=== PATIENT | male | born 1975 | race Caucasian/White ===

== ENCOUNTER → 2018-01-08 | Emergency (ER) | payer OTHER ==
[~2018-01-08] VITALS: Ht 180.3 cm; Wt 81.6 kg
[~2018-01-08] MED LIST: PEPCID40 MG PO; PHENERGAN25 MG PO; RELAGESIC 5001 EACH PO
== END | disposition home or self-care (01) ==
LOC: ER 20:13
DX: R06.6 Hiccough (principal); K20.8 Other esophagitis

== ENCOUNTER 2021-06-08 00:12 | Emergency (ER) | payer OTHER ==
[~2021-06-08] VITALS: Ht 180.3 cm; Wt 81.6 kg
[2021-06-08] MEDS ORDERED: INTESTINEX680 M1 PO (03:26)
[2021-06-08] MEDS ORDERED: CLEOCIN HCL300 MG PO (03:26)
[2021-06-08] MEDS ORDERED: ACETAMINOPHEN650 M2 PO (03:26)
== END 2021-06-08 05:06 | disposition home or self-care (01) ==
LOC: ER 00:12
DX: H92.02 Otalgia, left ear (principal); H60.12 Cellulitis of left external ear

== ENCOUNTER 2021-06-16 23:49 | Emergency (ER) | payer OTHER ==
[~2021-06-16] VITALS: Ht 180.3 cm; Wt 81.6 kg
[~2021-06-16 23:49] MED LIST changes: +ACETAMINOPHEN650 M2 PO; +CLEOCIN HCL300 MG PO; +INTESTINEX680 M1 PO
== END 2021-06-17 03:10 ==
LOC: ER 23:49
DX: H60.02 Abscess of left external ear (principal); S00.412A Abrasion of left ear, initial encounter; X58.XXXA Exposure to other specified factors, initial encounter; Y93.89 Activity, other specified; Y92.89 Other specified places as the place of occurrence of the external cause; Y99.8 Other external cause status